=== PATIENT | male | born 1970 | race Caucasian/White ===

== ENCOUNTER 2019-09-07 04:37 | Emergency (ER) | payer OTHER ==
[~2019-09-07] VITALS: Ht 177.8 cm; Wt 80.3 kg
[2019-09-07] MEDS ORDERED: ADVIL (04:53)
[2019-09-07] MEDS ORDERED: SUDAFED (04:54)
[2019-09-07] MEDS ORDERED: ZITHROMAX500 MG PO (05:24)
[2019-09-07] MEDS ORDERED: TESSALON PERLE100 M1 PO (05:24)
[2019-09-07] MEDS ORDERED: PROMETH-CODEIN 65 ML PO (05:24)
== END 2019-09-07 05:46 | disposition home or self-care (01) ==
LOC: ER 04:37
DX: R05 Cough (principal)